=== PATIENT | female | born 1940 | race Caucasian/White ===

== ENCOUNTER 2016-07-06 05:35 | Inpatient (IN) | payer MEDICARE, OTHER ==
--- NOTE | 2016-06-28 18:48 | CONS ---
DATE OF ADMISSION: 07/06/2016 DATE OF CONSULTATION: 07/06/2016 INTERNAL MEDICINE CONSULTATION, PREOPERATIVE EVALUATION Dear Dr. Mckeon, Thank you for asking me to see this 75-year-old retired woman who has had a significant problem with pain and inability to walk or climb stairs because of degenerative arthritis in her right knee. Th e patient previously underwent a left knee replacement several years ago and has done well. She cur rently lives by herself. She is a but does have some local friends. FAMILY HISTORY: The patient was born in [place] and came here approximately 21 years ago. Both danilo nts are . There is 1 sister who lives in [place] as does 1 son with the family. She is divo rced. MEDICAL PROBLEMS: Include hypertension, hypothyroidism, and osteoporosis. PAST SURGICAL HISTORY: She had a bladder suspension by Dr. Mitchell, left TKR actually 8 years ago b hilda Menard. She has had bunion surgery. She saw retinal specialist, Dr. Mireles, for what sounds l pepe a retinal detachment following a fall, treated with a gas bubble with at least 60% improvement. CURRENT MEDICATIONS: 1. Atenolol 25 mg b.i.d. 2. She takes Benicar. She is not clear about the dose. 3. She has Norvasc tablets which she is to take if her pressure is elevated. 4. She takes clonazepam. 5. Ambien for sleep. 6. She takes Crestor 5 mg daily. 7. She takes Synthroid, dose unknown. 8. Potassium. 9. She takes Alendronate 70 mg once weekly. 10. She has Motrin but has not been using it preoperatively. SOCIAL HISTORY: The patient is a nonsmoker and does not drink. REVIEW OF SYSTEMS: Not complaining of headaches, acceptable vision. She is driving. Cardiopulmona ry: Not short of breath, no cough, no exertional chest pain. Gastrointestinal: She did have a col onoscopy and has had several, every 5 or so years, which have been normal. Bladder symptoms are res olved. PHYSICAL EXAMINATION: GENERAL: Reveals a pleasant, somewhat overweight woman in no acute distress. VITAL SIGNS: Blood pressure is 140/78, on repeat was 120/78, pulse 72. She is afebrile. She weigh s 191 pounds. HEENT: Pupils round, reactive. Extraocular muscle movements are intact. 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 CHEST: Sounds clear. HEART: Tones regular, no murmurs. ABDOMEN: Soft, without palpable mass or tenderness. EXTREMITIES: The right knee is sore and is somewhat tender to range of motion with palpable effusio n. There is no edema. There is no clubbing or cyanosis. She does have some distal osteoarthritic changes in the IP joints of the hands. Peripheral pulses are good. INITIAL IMPRESSION: 1. Preoperative status, right total knee replacement. 2. History of hypertension, well controlled. 3. Hyperlipidemia. 4. Hypothyroidism. 5. History of what sounds to be a retinal detachment on the right which has improved. DISCUSSION: Electrocardiogram and chest x-ray are both within normal limits. There is a mild first -degree AV block noted on EKG which is showing consequential and may relate to her beta blockade. D iscussion at this point her medical status would appear to be acceptable for planned surgery. Labor atory tests are pending and will be forwarded. Dictated By: LAWRENCE MORGAN MD SR/NTS Conf#: [id number] DID#: [id number]
[~2016-07-06] VITALS: Ht 160 cm; Wt 83.8 kg
[2016-07-06] VITALS (22 sets, daily range): BP systolic 95–147; BP diastolic 46–78; PULSE 60–88; RESP 11–23; Ht 160 cm; Wt 83.8 kg
[2016-07-06] MEDS ORDERED: LACTATED RINGER'S 1,000 ML IV* SCH (06:05)
[2016-07-06] MEDS ORDERED: VANCOMYCIN 1 GM (PMX) 250 ML IVPB ONE (06:06)
[2016-07-06] MEDS: SOD CHLORIDE 0.9% IRR SCH ×4 (06:07→08:13)
[2016-07-06] MEDS ORDERED: TRANEXAMIC ACID IVPB ONE (06:07)
[2016-07-06] MEDS ORDERED: SOD CHLORIDE 0.9% IVPB ONE (06:07)
[2016-07-06] MEDS: TRANEXAMIC ACID IRR SCH ×4 (06:07→08:13)
[2016-07-06] MEDS ORDERED: CELECOXIB 200 MG CAP PO ONE (06:08)
[2016-07-06] MEDS ORDERED: LANSOPRAZOLE 30 MG CAP PO ONE (06:08)
[2016-07-06] MEDS ORDERED: ACETAMINOPHEN 1000MG/100ML IV 100 ML IVPB ONE (06:08)
[2016-07-06] MEDS ORDERED: oxyCODONE (CR) 10 MG TAB [oxyCONTIN] PO ONE (06:08)
[2016-07-06] MEDS ORDERED: ONDANSETRON 4 MG INJ IV ONE (06:08)
[2016-07-06] MEDS ORDERED: DEXAMETHASONE 4 MG/ML 1 ML INJ IV ONE (06:09)
[2016-07-06] MEDS: KNEE PAIN COCKTAIL VANCO INJ SCH ×12 (06:30→08:13)
[2016-07-06] MEDS ORDERED: BUPIVACAINE 0.5%/EPI (SDV) 30 ML INJ ONE (06:39)
[2016-07-06] MEDS ORDERED: ROPIVACAINE 0.2% 100ML BAG ONE (06:46)
[2016-07-06] MEDS ORDERED: VANCOMYCIN 1 GM INJ ONE (06:46)
[2016-07-06] MEDS ORDERED: TOBRAMYCIN 1.2 GM POWDER ONE (06:46)
[2016-07-06] MEDS ORDERED: METHYLENE BLUE 10 MG/ML VIAL ONE (06:46)
[2016-07-06] MEDS ORDERED: BUPIVACAINE 0.25%/EPI (SDV) 30 ML INJ ONE (06:46)
[2016-07-06] MEDS ORDERED: POLYMYXIN B 500000 UNIT INJ ONE (06:46)
[2016-07-06] MEDS ORDERED: LIDOCAINE 2% (SDV) 5 ML INJ ONE (07:11)
[2016-07-06] MEDS ORDERED: PROPOFOL 20 ML ONE (07:11)
[2016-07-06] MEDS ORDERED: POTA10TA18 PO (07:17)
[2016-07-06] MEDS ORDERED: CLON1TAB3 PO (07:17)
[2016-07-06] MEDS ORDERED: DEXL60CA2 PO (07:17)
[2016-07-06] MEDS ORDERED: METO50TA16 PO (07:17)
[2016-07-06] MEDS ORDERED: ATEN-51 PO (07:17)
[2016-07-06] MEDS ORDERED: CRES10 PO (07:17)
[2016-07-06] MEDS ORDERED: GABA100C14 PO (07:17)
[2016-07-06] MEDS ORDERED: LEVO50TA83 PO (07:17)
[2016-07-06] MEDS ORDERED: LINA290C PO (07:17)
[2016-07-06] MEDS ORDERED: BENHCT2012 PO (07:17)
[2016-07-06] MEDS ORDERED: hydrALAzine 20 MG INJ IV PRN (08:00)
[2016-07-06] MEDS ORDERED: EPHEDrine SULFATE 50 MG/5 ML SYG IV PRN (08:00)
[2016-07-06] MEDS ORDERED: DIPHENHYDRAMINE 50 MG INJ IV PRN (08:00)
[2016-07-06] MEDS ORDERED: METOCLOPRAMIDE 10 MG INJ IV PRN (08:00)
[2016-07-06] MEDS ORDERED: MIDAZOLAM 1 MG/ML 2 ML INJ IV PRN (08:00)
[2016-07-06] MEDS ORDERED: MEPERIDINE 25 MG INJ IV PRN (08:00)
[2016-07-06] MEDS ORDERED: morphine (1 MG/ML) 10ML SYRINGE IV PRN ×2 (08:00)
[2016-07-06] MEDS ORDERED: LABETALOL HCL 20MG INJ IV PRN (08:00)
[2016-07-06] MEDS ORDERED: ONDANSETRON 4 MG INJ IV PRN (08:00)
[2016-07-06] MEDS ORDERED: HYDROmorphONE (0.2 MG/ML) 10ML SYG IV PRN ×2 (08:00)
[2016-07-06] MEDS ORDERED: FENTAnyl 50 MCG/ML VIAL IV PRN ×2 (08:00)
[2016-07-06] MEDS ORDERED: BACITRACIN 50000 UNITS INJ IRR ONE (08:13)
[2016-07-06] MEDS ORDERED: DIPHENHYDRAMINE 50 MG INJ IM PRN (11:30)
[2016-07-06] MEDS ORDERED: COUMADIN NOTE XX SCH (11:30)
[2016-07-06] MEDS ORDERED: HYDROmorphONE 0.2 MG/ML PCA IV PRN (11:30)
[2016-07-06] MEDS ORDERED: DOCUSATE SODIUM 100 MG CAP PO ONE (11:30)
[2016-07-06] MEDS ORDERED: MAGNESIUM HYDROXIDE 30ML CUP PO PRN (11:30)
[2016-07-06] MEDS ORDERED: ASPIRIN (EC) 325 MG TAB PO ONE (11:30)
[2016-07-06] MEDS ORDERED: MEPERIDINE 10 MG/ML 30 ML PCA IV PRN (11:30)
[2016-07-06] MEDS ORDERED: BISACODYL 10 MG SUPP PR PRN (11:30)
[2016-07-06] MEDS ORDERED: SENNA/DOCUSATE NA (8.6MG/50MG) TAB PO PRN (11:30)
[2016-07-06] MEDS ORDERED: oxyCODONE 5 MG TAB PO PRN (11:30)
[2016-07-06] MEDS ORDERED: NA PHOSPHATE/BIPHOS 133 ML ENEMA PR PRN (11:30)
[2016-07-06] MEDS: ACETAMINOPHEN 1000MG/100ML IV 100 ML IVPB SCH ×2 (11:30→20:19)
[2016-07-06] MEDS ORDERED: NALOXONE (0.4 MG/ML) INJ IV PRN (11:30)
--- NOTE | 2016-07-06 11:39 | PN ---
Date/Time of Note Date/Time of Note DATE: 07/06/16 TIME: 11:32 Assessment/Plan VTE Prophylaxis VTE Prophylaxis Intervention: SCD's Lines/Catheters IV Catheter Type (from Nrsg): Saline Lock Central line still needed: No (asa) Urinary Cath still in place: Yes Reason Cath still needed: other (indicate) (postop) Subjective 24 Hr Interval Summary Free Text/Dictation jamari dfsis post tkr seen in recovery room.Sfdshe is alert and talkative, no real complaints at this point. hx of hypertension, hypothyroidism, hyperlipidemia, djd of the knees. on exam, lungs clear, heart rate ok, bp 121/67, rt knee wrapped Exam/Review of Systems Vital Signs Vitals Vital Signs Date Time Temp Pulse Resp B/P Pulse Ox O2 Delivery O2 Flow Rate FiO2 07/06/16 11:20 68 19 119/63 94 Nasal Cannula 07/06/16 11:15 98.0 Medications Medications Current Medications Lactated Ringer's (Lr) 1,000 ml @ 125 mls/hr Q8H IV* Last administered on at 06:23; Admin Dose 125 MLS/HR; Start 07/06/16 at 06:05; Stop 07/06/16 at 14:04 LAWRENCE MORGAN MD Jul 06, 2016 11:39
--- NOTE | 2016-07-06 11:54 | RADRPT ---
PROCEDURE: Right knee radiographs. CLINICAL INDICATION: Right knee pain. Intraoperative. TECHNIQUE: 3 views. Portable intraoperative. Frontal, lateral, and oblique. COMPARISON: 06/20/1960. FINDINGS: There are components of a total right knee arthroplasty. Anterior skin madonna and surgical drains are noted. There is gas in the soft tissues from the recent surgery. There is no lytic or blastic lesion. IMPRESSION: 1. Satisfactory intraoperative images of the right knee. RPTAT: QQ .Guanakito Church MD, Date Time Electronically viewed and signed by .Guanakito Church MD, on 07/06/2016 11:53 .R/
--- NOTE | 2016-07-06 11:54 | RADRPT ---
PROCEDURE: Intraoperative imaging of the right knee with fluoroscopy. CLINICAL INDICATION: Right knee pain. Intraoperative. TECHNIQUE: 6 images of the right knee were obtained in the operating room with an image intensifie r. No radiologist was in attendance. 20.3 seconds of fluoroscopy time was used. COMPARISON: No prior study is available for comparison. FINDINGS: Images demonstrate placement of a right knee total arthroplasty. IMPRESSION: 1. Intraoperative imaging of the right knee. RPTAT: QQ .Guanakito Church MD, MD Date Time Electronically viewed and signed by .Guanakito Church MD, MD on 07/06/2016 11:54 .R/
[2016-07-06] MEDS: CEFAZOLIN 1 GM/50 ML (PMX) 50 ML IVPB SCH ×2 (12:08→20:19)
[2016-07-06] MEDS: ONDANSETRON 4 MG INJ IV SCH ×3 (12:09→23:30)
--- NOTE | 2016-07-06 12:57 | OPR ---
DATE OF OPERATION: 07/06/2016 TOTAL KNEE REPLACEMENT TEMPLATE #1 SURGEON: Herbert. Linda MD CRYOGENIC TRANSPORT DRIVER: ANESTHESIOLOGIST: Dr. Giron PREOPERATIVE DIAGNOSIS: Exceedingly severe degenerative osteoarthritis of the right knee. POSTOPERATIVE DIAGNOSIS: Exceedingly severe degenerative osteoarthritis of the right knee. OPERATION PERFORMED: Total knee replacement (arthroplasty of the knee, condylar plateau medial and lateral compartments with patella resurfacing, CPT 43060). FINDINGS AT SURGERY: JUSTIFICATION FOR SURGERY: The knee was found to have end-stage osteoarthritis. 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 An extensive course of conservative care has been tried prior to embarking on the knee replacement operation. There can be no reasonable expectation that any further conservative treatment will make any improvement to this patient's pain level and lifestyle. The risks and complications of the janel courtney were discussed with the patient at the preoperative visit as well as the risks and possible com plications of blood transfusion using hospital blood. The patient is agreeable to using hospital bl ood if needed. DESCRIPTION OF PROCEDURE: The patient was given intravenous antibiotics 1 hour prior to surgery. A n epidural anesthetic was initiated in the ICU holding area. The patient was taken to the operating room and given a light general anesthetic. The leg, foot, and ankle were prepared and draped in th e usual sterile fashion. The center of the ankle was marked at the midpoint between the 2 malleoli with a sterile marking pen. A tourniquet around the thigh was inflated to 250 mmHg after the leg sanders d been exsanguinated using an Esmarch bandage. The tourniquet was inflated at the initiation of pro cedure for a short period and was then again reinflated at the time of cementing the components part s. The total tourniquet time was ____ minutes. A longitudinal incision was made over the anterior aspect of the knee. The incision extended from t he tibial tubercle to a point just above the patella. The medial capsule was exposed by sharp and b lizbet dissection, and was incised 1/4 inch medial to the patella. A marking stitch was set on each s sam of the incision at the midpoint of the capsule so as to enable accurate reapproximation at the e nd of the operation. A vastus split was made in the vastus medialis extending from the superior mary jo e of the patella for approximately 5 cm between the line with the muscle fibers. The ends of the mu scle split at the patella were marked with a marking stitch on each side for later accurate reapprox imation. The patella was reflected laterally and osteophytes around the rim of the patella were rem jono. Osteophytes along the lateral femoral condyle were removed so as to facilitate lateral reflec tion of the patella. Posteromedial osteophytes were removed on the lateral side as well, so as to f ree up the lateral collateral ligament. Medial femoral osteophytes and posteromedial femoral osteop hytes were also removed at this time. This allowed for the knee to be brought into a more normal al ignment. A segment of bone was cut from the articular surface of the patella using a caliper to det ermine the exact thickness to be removed. The remaining thickness of the patella was 15 mm. The kn ee was flexed, and the patella was displaced laterally without eversion. Osteophytes in the femoral notch were removed. The remnants of the medial and lateral menisci were excised and the cruciate l igaments were excised. The medial collateral ligament was elevated as an osteo-periosteal flap from the proximal tibia. The distal end of the medial collateral ligament remained attached to the tibi a throughout the operation. The tibia was retracted forward with Hohmann retractor, inserted milk handler ior to the midpoint of the proximal tibia. The tibial jig was set in place in such a way as to alig n longitudinally with the anterior tibial spine, with the junction of the middle and medial 2/3 of t he patella tendon, and with the posterior intercondylar eminence of the tibia. An AP and lateral x- ray was obtained with the alignment jig in place. This showed that the alignment was satisfactory a fter some slight adjustments were made. The posterior slope of the tibia was set at 7.5 degrees. T he tibial cutting block was attached to the proximal tibia with 2 Steinmann pins. An external align ment corey was placed on the cutting block to confirm the alignment of the cutting block. An Elias Wi ng feeler gauge was now placed on the superior aspect of the cutting block to further confirm the po sterior slope of the tibia and the depth of the cut to be made. An oscillating saw was used to kanika ve an appropriate amount of bone from the proximal tibia with the healthy side being used to measure the cutting depth. The lateral femoral condyle of the distal femur was measured to determine the a ppropriate size for the femoral component. The anterior condyle of the femur was partially removed with a rongeur. A medium-sized cutting block was attached to the distal femur with 2 Steinmann pins through the pin holes in the block. The external alignment jig of this cutting block was lined up with the anterior surface of the femur and a central intercondylar hole for the intramedullary corey w as drilled through the hole in the alignment block. The block was removed. A long [place] nozzle was used to flush fat from the intramedullary canal. The appropriately sized cutting block was now attached to the femur by means of an intramedullary corey. The linking guide was inserted into the sl ot in the base of the femoral cutting block with the knee set at 90 degrees of flexion and with the linking guide set flush with the proximal tibial cut in order to set the appropriate rotational alig nment on the femoral cutting block. Ligament balance was checked at this point and was found to be very satisfactory. Once the rotational alignment had been determined, and the ligaments found to be balanced, the femoral cutting block was secured to the distal femur with 2 Steinmann pins. The ant erior and posterior cuts of the distal femur were made off the femoral cutting block. The cutting b lock was removed and a spacer block was used to measure the flexion gap which was found to be 12.5 m m. The same spacer block size without the femoral element was used with the leg in extension to determi ne the amount of distal femur to be removed in the transverse plane. A 5-degree distal cutting bloc k was now set on the femoral intramedullary corey, and the corey was inserted into the intramedullary ca nal. The appropriate amount of bone to be removed was determined. The femoral cutting block was pi nned to the anterior surface of the femur with 2 Steinmann pins. The appropriate amount of bone was resected off the distal femur to give an extension gap equal to the thickness of the flexion gap. The cut needed to be repeated after initial cut in order to produce an extension gap the same size a s the flexion gap. By using the appropriate cutting blocks, the rest of the femoral cuts were made. The femoral trial component was installed and was found to fit perfectly. The femoral trial component was removed. T he proximal tibia was sized, and the appropriate tibial tray selected. The central fixation hole in the tibia was made using the tibial tray template and the appropriate instruments. The femoral and tibial trials and the trial tibial insert were installed, and the patella was prepared to accept th e 35 mm patella dome component. The trial components were all removed. The tourniquet was inflated . Soft tissues around the knee, especially the posterior capsule, were injected with a mixture of N aropin, Toradol, morphine, and clonidine. The cut surfaces of the bones were cleaned with pulsatile Water Jet lavage and thoroughly dried. Sclerotic bone surfaces were drilled with a 1/8-inch drill. The tibial trial component was installed with methyl methacrylate cement followed by the femoral c omponent and finally the patellar component. Cement was used on all 3 components. The cement was f bryan packed into the cut surfaces of the bone and pressurized with a rubber dam in order to get goo d interdigitation of the cement into the bone. A lateral x-ray of the knee was obtained while the c ement was hardening with the anticipated appropriate spacer trial in place. Once the cement was tej d, all extraneous cement was removed. The cut edges of the medial capsule were held together at the midpoint with a towel clip, and the knee was put through a full range of motion. The patella was f ound to track satisfactorily. A lateral release was not required. At this point, the patella was f ound to track very well in the patellar groove of the femoral component. The knee was frequently irrigated with normal saline containing antibiotics with pulsatile lavage th roughout the entire operation as a prophylactic measure against infection. Once the cement was hard , the tourniquet was released. Bleeding points were cauterized. The total tourniquet time was ____ . The patient's vital signs remained stable throughout the operation. The permanent rotating bearing was installed. Superficial and deep Hemovac drains were set in place . The wound was closed using interrupted Vicryl on the capsule with FiberWire used at strategic poi nts such as the attachment of the distal ends of the vastus medialis at the split, and the tibial te ndon was also attached to the osteo-periosteal flap with FiberWire. The rest of the medial capsule was closed with interrupted Vicryl. A subcuticular stitch was inserted and madonna were used on the skin. The usual sterile dressings were applied. A Lui-Aden compression dressing was applied a fter a sterile cooling pad had been set in place against the deep tissues by sterile cast padding. The patient's condition at the end of the procedure was satisfactory. Vital signs remained stable t hroughout the operation. The patient returned to the recovery room in stable condition. X-rays wer e obtained in the recovery room. Calf pumps were applied to both legs in the operating room. There were no problems or complications as far as we know. The sponge and instrument counts were correct . COMPONENT INFORMATION: KNEE IMPLANT TYPE: LCS. FEMORAL COMPONENT SIZE: Standard. TIBIAL COMPONENT SIZE: #3. PATELLAR COMPONENT SIZE: 35 mm patella dome. TIBIAL INSERT: 12.5 mm rotating posterior stabilized deep dish bearing. 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 TOTAL TOURNIQUET TIME: ____ TOTAL BLOOD LOSS: Approximately 200 mL. Dictated By: LUIS BEARDEN/HANH Conf#: [id number] DID#: [id number]
[2016-07-06] MEDS: DEXTROSE 5%-LR 1,000 ML IV SCH ×2 (14:42→23:49)
[2016-07-06] MEDS: clonAZEPAM 0.5 MG TAB PO SCH (20:20)
[2016-07-06] MEDS: CELECOXIB 200 MG CAP PO SCH (20:21)
[2016-07-06] MEDS: GABAPENTIN 100 MG CAP PO SCH (21:00)
[2016-07-06] MEDS: ZOLPIDEM 5 MG TAB PO PRN (21:12)
[2016-07-07 00:39] VITALS: BP 114/54; PULSE 78; RESP 18
[2016-07-07] MEDS: ACETAMINOPHEN 1000MG/100ML IV 100 ML IVPB SCH ×3 (04:23→20:49)
[2016-07-07] MEDS: CEFAZOLIN 1 GM/50 ML (PMX) 50 ML IVPB SCH (04:23)
[2016-07-07] MEDS: DEXTROSE 5%-LR 1,000 ML IV SCH ×2 (04:24→21:39)
[2016-07-07] MEDS: ONDANSETRON 4 MG INJ IV SCH (05:20)
[2016-07-07] MEDS ORDERED: BUPIVACAINE 0.25%/EPI (SDV) 30 ML INJ INJ PRN (06:00)
[2016-07-07] MEDS ORDERED: KETOROLAC 30 MG INJ INJ PRN (06:00)
[2016-07-07 06:02] LABS: BASOPHILS % 0.2 % (0.0-2.0); HEMATOCRIT 29.9 % (37.0-47.0); HEMOGLOBIN 10.3 g/dl (12.0-16.0); LYMPHOCYTES # 1.2 10^3/ul (0.8-2.9); MEAN CORPUSCULAR HEMOGLOBIN 31.9 pg (29.0-33.0); MEAN CORPUSCULAR HGB CONC 34.3 g/dl (32.0-37.0); MEAN CORPUSCULAR VOLUME 93.1 fl (82.0-101.0); MEAN PLATELET VOLUME 9.2 fl (7.4-10.4); MONOCYTE # 0.8 10^3/ul (0.3-0.9); NEUTROPHIL # 8.1 10^3/ul (1.6-7.5); NEUTROPHILS % 79.8 % (39.0-77.0); PLATELET COUNT 249 10^3/UL (140-440); RED BLOOD COUNT 3.21 10^6/ul (4.20-5.40); RED CELL DISTRIBUTION WIDTH 13.3 % (11.5-14.5); UNCORRECTED WBC 10.2 10^3/ul (4.8-10.8); WHITE BLOOD COUNT 10.2 10^3/ul (4.8-10.8)
[2016-07-07 06:22] LABS: CONDITION 1
[2016-07-07] MEDS: LEVOTHYROXINE 50 MCG TAB PO SCH (06:28)
[2016-07-07] MEDS: DEXAMETHASONE 4 MG/ML 1 ML INJ IV SCH (06:28)
[2016-07-07 07:01] VITALS: BP 145/78; PULSE 77; RESP 18
[2016-07-07 07:46] LABS: ADD UMIC YES; URINE BILIRUBIN (Dip) NEGATIVE (NEGATIVE); URINE BLOOD (Dip) TRACE (NEGATIVE); URINE COLOR LT. YELLOW (YELLOW); URINE KETONES (Dip) NEGATIVE (NEGATIVE); URINE LEUKOCYTE ESTERASE (Dip) NEGATIVE (NEGATIVE); URINE NITRITE (Dip) NEGATIVE (NEGATIVE); URINE TOTAL PROTEIN (Dip) NEGATIVE (NEGATIVE); URINE UROBILINOGEN (Dip) 0.2 E.U./dL (0.1-1.0)
[2016-07-07 08:00] VITALS: BP 136/70; PULSE 73; RESP 17
[2016-07-07 08:24] LABS: BACTERIA,URINE RARE
[2016-07-07] MEDS: HYDROCHLOROTHIAZIDE 12.5 MG CAP PO SCH (08:57)
[2016-07-07] MEDS: CELECOXIB 200 MG CAP PO SCH ×3 (08:57→20:50)
[2016-07-07] MEDS: ASPIRIN (EC) 325 MG TAB PO SCH ×2 (08:58→21:00)
[2016-07-07] MEDS: FERROUS FUMARATE (SR) TAB PO SCH ×2 (08:58→20:49)
[2016-07-07] MEDS: GABAPENTIN 100 MG CAP PO SCH (08:58)
[2016-07-07] MEDS: LOSARTAN 50 MG TAB PO SCH (08:58)
[2016-07-07] MEDS: ATENOLOL 25 MG TAB PO SCH (08:59)
[2016-07-07] MEDS: DOCUSATE SODIUM 100 MG CAP PO SCH ×2 (08:59→21:00)
[2016-07-07] MEDS ORDERED: NON-FORMULARY/PATIENT OWN MED (Dexlansoprazole (Dexilant) 60 MG) PO SCH (09:00)
[2016-07-07] MEDS: clonAZEPAM 0.5 MG TAB PO SCH ×2 (09:00→20:50)
[2016-07-07] MEDS: POTASSIUM CITRATE (SR) 5 MEQ TAB PO SCH (09:00)
[2016-07-07] MEDS: METOPROLOL (XL) 25 MG TAB PO SCH (09:00)
--- NOTE | 2016-07-07 15:30 | PN ---
Date/Time of Note Date/Time of Note DATE: 07/07/16 TIME: 15:27 Assessment/Plan VTE Prophylaxis VTE Prophylaxis Intervention: SCD's (ambulating w p.t., on asa) Lines/Catheters IV Catheter Type (from Nrsg): Peripheral IV Urinary Cath still in place: Yes Subjective 24 Hr Interval Summary Free Text/Dictation one day post op right tkr, doing well, minimal discomfort dressings changed, has been up with p.t. vitals are ok, meds continued from home alert lungs clear, heart rate is ok, abd soft rt knee fair flexion for this early post op stage, no sig edema Exam/Review of Systems Vital Signs Vitals Vital Signs Date Time Temp Pulse Resp B/P Pulse Ox O2 Delivery O2 Flow Rate FiO2 07/07/16 08:00 98.3 73 17 136/70 96 Room Air 07/06/16 21:15 2.0 Intake and Output 07/06/16 07/06/16 07/07/16 15:00 23:00 07:00 Intake Total 3750 ml 760 ml 1050 ml Output Total 750 ml 1780 ml 2500 ml Balance 3000 ml -1020 ml -1450 ml Results Result Diagram: 07/07/16 0440 Results 24 hrs Laboratory Tests Test 07/07/16 04:30 07/07/16 04:40 Urine Bacteria RARE Urine Bilirubin NEGATIVE Urine Clarity CLEAR Urine Color LT. YELLOW Urine Epithelial Cells RARE Urine Glucose 0.5% H Urine Hemoglobin TRACE Urine Ketones NEGATIVE Urine Leukocyte Esterase NEGATIVE Urine Microscopic RBC 2-5 Urine Microscopic WBC 0-2 Urine Nitrite NEGATIVE Urine Specific [place] <=1.005 L Urine Total Protein NEGATIVE Urine Urobilinogen 0.2 E.U./dL Urine pH 6.0 Basophils # 0.0 Basophils % 0.2 Eosinophils # 0.0 Eosinophils % 0.0 Hematocrit 29.9 L Hemoglobin 10.3 L Lymphocytes # 1.2 Lymphocytes % 12.0 L Mean Corpuscular Hemoglobin 31.9 Mean Corpuscular Hemoglobin Concent 34.3 Mean Corpuscular Volume 93.1 Mean Platelet Volume 9.2 Monocytes # 0.8 Monocytes % 8.0 Neutrophils # 8.1 H Neutrophils % 79.8 H Nucleated Red Blood Cells # 0.0 Nucleated Red Blood Cells % 0.0 Platelet Count 249 Red Blood Count 3.21 L Red Cell Distribution Width 13.3 White Blood Count 10.2 Medications Medications Current Medications Dextrose/Lactated Ringer's (D5-Lr) 1,000 ml @ 80 mls/hr [id number] IV Last administered on 07/07/16at 04:24; Admin Dose 80 MLS/HR; Start 07/06/16 at 11:19 Oxycodone HCl (Roxicodone) 20 mg Q3H PRN PO PAIN LEVEL 8-10; Start 07/06/16 at 11:30 Oxycodone HCl 10 mg 10 mg Q3H PRN PO PAIN LEVEL 4-7; Start 07/06/16 at 11:30 Acetaminophen (Ofirmev 1000mg/ 100ml Iv) 100 ml @ 400 mls/hr Q8H IVPB Last administered on 07/07/16at 12:07; Admin Dose 400 MLS/HR; Start 07/06/16 at 11: 30; Stop 07/08/16 at 03:44 Zolpidem Tartrate (Ambien) 5 mg HS PRN PO INSOMNIA Last administered on at 21:12; Admin Dose 5 MG; Start 07/06/16 at 11:30 Miscellaneous Information (Note) NOTE XX ; Start 07/06/16 at 11:30 Aspirin (Ecotrin) 325 mg BID PO Last administered on 07/07/16at 08:58; Admin Dose 325 MG; Start 07/07/16 at 09:00 Dexamethasone (Decadron) 4 mg DAILY@07 IV Last administered on 07/07/16at 06:28 ; Admin Dose 4 MG; Start 07/07/16 at 07:00; Stop 07/10/16 at 06:59 Pantoprazole (Protonix Tab) 40 mg DAILY@06 PO ; Start 07/08/16 at 06:00 Docusate Sodium/ Ferrous Fumarate (Grace-Sequels) 1 tab BID PO Last administered on 07/07/16at 08:58; Admin Dose 1 TAB; Start 07/07/16 at 09:00 Docusate Sodium (Colace) 200 mg BID PO Last administered on 07/07/16at 08:59; Admin Dose 200 MG; Start 07/07/16 at 09:00; Stop 07/10/16 at 08:59 Simethicone (Mylicon) 80 mg TID PRN PO DISTENSION/GAS/BLOATING Last administered on 07/07/16at 08:59; Admin Dose 80 MG; Start 07/06/16 at 11:30 Senna/Docusate Sodium (Senokot-S) 2 tab BID PRN PO CONSTIPATION Last administered on 07/07/16at 09:00; Admin Dose 2 TAB; Start 07/06/16 at 11:30 Magnesium Hydroxide (Milk Of Mag) 30 ml HS PRN PO CONSTIPATION; Start at 11:30 Bisacodyl (Dulcolax Supp) 10 mg DAILY PRN SD CONSTIPATION; Start 07/06/16 at 11:30 Sodium Biphosphate/ Sodium Phosphate (Fleet Enema) 133 ml DAILY PRN SD CONSTIPATION; Start 07/06/16 at 11:30 Diphenhydramine HCl (Benadryl) 25 mg Q4H PRN IM ITCHING OR RASH; Start at 11:30 Ketorolac Tromethamine (Toradol) 30 mg DAILY@06 PRN INJ ADMINSTER BY SURGEON ONLY; Start 07/07/16 at 06:00; Stop 07/11/16 at 05:59 Bupivacaine HCl/ Epinephrine Bitart (Marcaine 0.25%/ Epi (Sdv) 30 ml) 20 ml DAILY@06 PRN INJ ADMINSTER BY SURGEON ONLY; Start 07/07/16 at 06:00; Stop 07/11 at 05:59 Naloxone HCl (Narcan) 0.2 mg Q2M PRN IV DECREASED REPIRATORY RATE; Start at 11:30 Celecoxib (Celebrex) 200 mg BID PO Last administered on 07/06/16at 20:21; Admin Dose 200 MG; Start 07/06/16 at 21:00 Atenolol (Tenormin) 25 mg DAILY PO Last administered on 07/07/16at 08:59; Admin Dose 25 MG; Start 07/07/16 at 09:00 Clonazepam (Klonopin) 1 mg BID PO Last administered on 07/06/16at 20:20; Admin Dose 1 MG; Start 07/06/16 at 21:00 Potassium Citrate (Urocit-K) 10 meq DAILY PO Last administered on 07/07/16at 09 :00; Admin Dose 10 MEQ; Start 07/07/16 at 09:00 Losartan Potassium (Cozaar) 100 mg DAILY PO Last administered on 07/07/16at 08: 58; Admin Dose 100 MG; Start 07/07/16 at 09:00 Metoprolol Succinate (Toprol Xl) 25 mg DAILY PO Last administered on 09:00; Admin Dose 25 MG; Start 07/07/16 at 09:00 Hydrochlorothiazide (Hydrochlorothiazide) 12.5 mg DAILY PO Last administered on 07/07/16 08:57; Admin Dose 12.5 MG; Start 07/07/16 at 09:00 Gabapentin (Neurontin) 100 mg DAILY PO Last administered on 07/07/16 08:58; Admin Dose 100 MG; Start 07/06/16 at 21:00 Levothyroxine Sodium (Synthroid) 50 mcg DAILY@06 PO Last administered on 06:28; Admin Dose 50 MCG; Start 07/07/16 at 06:00 LAWRENCE MORGAN MD Jul 07, 2016 15:30
[2016-07-07] MEDS: oxyCODONE 5 MG TAB PO PRN (15:54)
[2016-07-07 21:15] VITALS: BP 150/70; PULSE 61; RESP 18
[2016-07-08] VITALS: BP 149/67; PULSE 62; RESP 18
[2016-07-08] MEDS: ACETAMINOPHEN 1000MG/100ML IV 100 ML IVPB SCH (03:58)
[2016-07-08 05:31] LABS: BASOPHILS % 0.2 % (0.0-2.0); EOSINOPHILS # 0.1 10^3/ul (0.0-0.5); EOSINOPHILS % 0.9 % (0.0-7.0); HEMATOCRIT 30.5 % (37.0-47.0); HEMOGLOBIN 10.3 g/dl (12.0-16.0); LYMPHOCYTES # 2.6 10^3/ul (0.8-2.9); LYMPHOCYTES % 27.5 % (15.0-51.0); MEAN CORPUSCULAR HEMOGLOBIN 31.6 pg (29.0-33.0); MEAN CORPUSCULAR HGB CONC 33.7 g/dl (32.0-37.0); MEAN CORPUSCULAR VOLUME 93.8 fl (82.0-101.0); MEAN PLATELET VOLUME 8.9 fl (7.4-10.4); MONOCYTES % 10.9 % (0.0-11.0); NEUTROPHIL # 5.7 10^3/ul (1.6-7.5); NEUTROPHILS % 60.5 % (39.0-77.0); PLATELET COUNT 251 10^3/UL (140-440); RED BLOOD COUNT 3.26 10^6/ul (4.20-5.40); RED CELL DISTRIBUTION WIDTH 13.3 % (11.5-14.5); UNCORRECTED WBC 9.5 10^3/ul (4.8-10.8); WHITE BLOOD COUNT 9.5 10^3/ul (4.8-10.8)
[2016-07-08 05:56] LABS: CONDITION 1
[2016-07-08] MEDS: DEXAMETHASONE 4 MG/ML 1 ML INJ IV SCH (06:28)
[2016-07-08] MEDS: LEVOTHYROXINE 50 MCG TAB PO SCH (06:28)
[2016-07-08] MEDS: PANTOPRAZOLE (EC) 40 MG TAB PO SCH (06:28)
[2016-07-08 08:00] VITALS: BP 115/53; PULSE 61; RESP 18
[2016-07-08] MEDS: POTASSIUM CITRATE (SR) 5 MEQ TAB PO SCH (08:41)
[2016-07-08] MEDS: FERROUS FUMARATE (SR) TAB PO SCH ×2 (08:41→20:33)
[2016-07-08] MEDS: oxyCODONE 5 MG TAB PO PRN (08:42)
[2016-07-08] MEDS: ASPIRIN (EC) 325 MG TAB PO SCH ×2 (08:42→21:00)
[2016-07-08] MEDS: CELECOXIB 200 MG CAP PO SCH ×2 (08:42→20:33)
[2016-07-08] MEDS: GABAPENTIN 100 MG CAP PO SCH (08:43)
[2016-07-08] MEDS: HYDROCHLOROTHIAZIDE 12.5 MG CAP PO SCH (08:43)
[2016-07-08] MEDS: METOPROLOL (XL) 25 MG TAB PO SCH (08:43)
[2016-07-08] MEDS: clonAZEPAM 0.5 MG TAB PO SCH ×2 (08:44→21:00)
[2016-07-08] MEDS: LOSARTAN 50 MG TAB PO SCH (08:44)
[2016-07-08] MEDS: ATENOLOL 25 MG TAB PO SCH (08:45)
[2016-07-08] MEDS: DOCUSATE SODIUM 100 MG CAP PO SCH ×2 (08:46→21:00)
--- NOTE | 2016-07-08 11:32 | PN ---
Date/Time of Note Date/Time of Note DATE: 07/08/16 TIME: 11:31 Assessment/Plan Lines/Catheters IV Catheter Type (from Nrsg): Saline Lock Carr in Place (from Nrsg): Yes Assessment/Plan Assessment/Plan POD # 2. Stable. -OOB with PT -Pain cocktail administered -Pain meds -E.C. ASA plus bilateral LE SCDs -Probable d/c to home tomorrow Subjective 24 Hr Interval Summary Comfortable. Minimal pain. Walking well with PT. Exam/Review of Systems Vital Signs Vitals Vital Signs Date Time Temp Pulse Resp B/P Pulse Ox O2 Delivery O2 Flow Rate FiO2 07/08/16 00:00 97.6 62 18 149/67 95 Room Air 07/06/16 21:15 2.0 Intake and Output 07/07/16 07/07/16 07/08/16 15:00 23:00 07:00 Intake Total 100 ml 930 ml 1100 ml Output Total 80 ml 2120 ml 950 ml Balance 20 ml -1190 ml 150 ml Exam Free Text/Dictation Dressing dry Incision clean, dry, and intact without redness or drainage 5/5 Tibialis Anterior, EHL, Gastroc Soleus, Peroneals Normal sensation Palpable DP/PT, CR < 2 Sec No distal edema Results Result Diagram: 07/08/16 0432 ALEX STEPHENS MD Jul 08, 2016 11:32
[2016-07-08] MEDS: DEXTROSE 5%-LR 1,000 ML IV SCH (12:06)
[2016-07-08 12:11] VITALS: BP 144/61; PULSE 66; RESP 16
[2016-07-08] MEDS: ZOLPIDEM 5 MG TAB PO PRN (20:33)
[2016-07-08 21:05] VITALS: BP 121/58; PULSE 63; RESP 18
[2016-07-09] MEDS: DEXTROSE 5%-LR 1,000 ML IV SCH (01:49)
[2016-07-09] MEDS ORDERED: LOPERAMIDE 2 MG CAP PO PRN (05:30)
[2016-07-09 05:41] LABS: BASOPHILS % 0.3 % (0.0-2.0); EOSINOPHILS # 0.1 10^3/ul (0.0-0.5); EOSINOPHILS % 1.1 % (0.0-7.0); HEMATOCRIT 32.3 % (37.0-47.0); LYMPHOCYTES # 3.3 10^3/ul (0.8-2.9); LYMPHOCYTES % 32.8 % (15.0-51.0); MEAN CORPUSCULAR HEMOGLOBIN 31.6 pg (29.0-33.0); MEAN CORPUSCULAR HGB CONC 34.2 g/dl (32.0-37.0); MEAN CORPUSCULAR VOLUME 92.6 fl (82.0-101.0); MEAN PLATELET VOLUME 9.3 fl (7.4-10.4); MONOCYTE # 0.7 10^3/ul (0.3-0.9); MONOCYTES % 7.2 % (0.0-11.0); NEUTROPHIL # 5.9 10^3/ul (1.6-7.5); NEUTROPHILS % 58.6 % (39.0-77.0); PLATELET COUNT 300 10^3/UL (140-440); RED BLOOD COUNT 3.49 10^6/ul (4.20-5.40); RED CELL DISTRIBUTION WIDTH 13.5 % (11.5-14.5)
[2016-07-09] MEDS: LEVOTHYROXINE 50 MCG TAB PO SCH (06:16)
[2016-07-09] MEDS: DEXAMETHASONE 4 MG/ML 1 ML INJ IV SCH (06:16)
[2016-07-09] MEDS: PANTOPRAZOLE (EC) 40 MG TAB PO SCH (06:16)
[2016-07-09 06:42] LABS: CONDITION 1
[2016-07-09 08:00] VITALS: BP 140/71; RESP 20
--- NOTE | 2016-07-09 08:36 | PDOCDIS ---
Discharge Instructions DIAGNOSIS Discharge Diagnosis: Status post right total knee arthroplasty CONDITION Patient Condition: Fair HOME CARE INSTRUCTIONS: Diet Instructions: RegularSpecial Diet: REGULAR ACTIVITY: Activity Restrictions: Slowly Increase Activity Rest between Activity Avoid heavy lifting Do not Drive Do not operate Machinery Do not operate Power Tool Avoid Heavy Housework Bathing Restrictions: ShowerActivity Restrictions Comment: Jac (for equipment)- [phone] FOLLOW UP/APPOINTMENTS Appointments Dr. Mckeon in 1 week REFERRALS Agency Name and Phone Number: [facility] [phone] CEDRIC CAGLE MD Jul 09, 2016 08:35
[2016-07-09] MEDS ORDERED: FERR1TAB14 PO (08:38)
[2016-07-09] MEDS ORDERED: CELE-54 PO (08:38)
[2016-07-09] MEDS ORDERED: ASPI325T32 PO (08:38)
--- NOTE | 2016-07-09 08:42 | DS ---
Date/Time of Note Date/Time of Note DATE: 07/09/16 TIME: 08:39 Discharge Summary Admission/Discharge Info Admit Date/Time Jul 06, 2016 at 05:35 Discharge Date/Time 07/09/2016 Final Diagnosis Osteoarthritis of right knee status post TKR; hypertension; hypothyroidism; hyperlipidemia; Patient Condition: Fair Consults Internal medicine; orthopedic surgery Procedures OPERATION PERFORMED: Total knee replacement (arthroplasty of the knee, condylar plateau medial and lateral compartments with patella resurfacing, CPT 85103). Hx of Present Illness Dear Dr. Mckeon, Thank you for asking me to see this 75-year-old retired woman who has had a significant problem with pain and inability to walk or climb stairs because of degenerative arthritis in her right knee. The patient previously underwent a left knee replacement several years ago and has done well. She currently lives by herself. She is a but does have some local friends. FAMILY HISTORY: The patient was born in [place] and came here approximately 21 years ago. Both parents are . There is 1 sister who lives in [place] as does 1 son with the family. She is . MEDICAL PROBLEMS: Include hypertension, hypothyroidism, and osteoporosis. PAST SURGICAL HISTORY: She had a bladder suspension by Dr. Mitchell, left TKR actually [address] Menard. She has had bunion surgery. She saw retinal specialist, Dr. Mireles, for what sounds like a retinal detachment following a fall, treated with a gas bubble with at least 60% improvement. Hospital Course 75-year-old woman who underwent successful joint replacement surgery on the . Postoperatively she had no complications. She did not have any cardiac respiratory neurologic complications. She did have one episode of loose bowel movements but has otherwise has done well. At this time she is now stable for discharge with outpatient follow-up. Home Meds Active Scripts Ferrous Fumarate/Ascorbic Acid (Grace-Sequels 65-25 mg Caplet) 1 Each Tablet.er , 1 TAB PO BID for 30 Days, TAB Prov:CEDRIC CAGLE MD 07/09/16 Celecoxib (Celecoxib) 200 Mg Capsule, 200 MG PO BID for 14 Days, CAP Prov:CEDRIC CAGLE MD 07/09/16 Aspirin (Aspir-Melvina) 325 Mg Tablet.dr, 325 MG PO BID for 14 Days Prov:CEDRIC CAGLE MD 07/09/16 Reported Medications Dexlansoprazole (Dexilant) 60 Mg Cap., 60 MG PO DAILY, #30 CAP 07/06/16 Olmesartan-Hydrochlorothiazide (Benicar HCT) 20-12.5 Mg Tablet, 1 TAB PO DAILY, #30 TAB 07/06/16 Linaclotide (LINZESS) 290 Mcg Capsule, 290 MCG PO DAILY, #30 CAP 07/06/16 Atenolol* (Atenolol*) 25 Mg Tablet, 25 MG PO DAILY, #30 TAB 07/06/16 Metoprolol Succinate* (Toprol XL*) 50 Mg Tab.er.24h, 50 MG PO DAILY, #30 TAB 07/06/16 Clonazepam* (Clonazepam*) 1 Mg Tablet, 1 MG PO BID, TAB 07/06/16 Potassium Citrate* (Potassium Citrate* ER) 10 Meq Tablet.sa, MEQ PO DAILY, TAB.SA 07/06/16 Rosuvastatin Calcium* (Crestor*) 10 Mg Tablet, 10 MG PO DAILY, #30 TAB 07/06/16 Gabapentin* (Gabapentin*) 100 Mg Capsule, 100 MG PO DAILY, #90 CAP 07/06/16 Levothyroxine Sodium* (Synthroid*) 50 Mcg Tablet, 50 MCG PO BEFORE BREAKFAST, # 30 TAB 07/06/16 Pending Labs Laboratory Tests Test 07/09/16 04:35 Basophils # 0.010^3/ul (0.0-0.1) Basophils % 0.3% (0.0-2.0) Eosinophils # 0.110^3/ul (0.0-0.5) Eosinophils % 1.1% (0.0-7.0) Hematocrit 32.3% (37.0-47.0) Hemoglobin 11.0g/dl (12.0-16.0) Lymphocytes # 3.310^3/ul (0.8-2.9) Lymphocytes % 32.8% (15.0-51.0) Mean Corpuscular Hemoglobin 31.6pg (29.0-33.0) Mean Corpuscular Hemoglobin Concent 34.2g/dl (32.0-37.0) Mean Corpuscular Volume 92.6fl (82.0-101.0) Mean Platelet Volume 9.3fl (7.4-10.4) Monocytes # 0.710^3/ul (0.3-0.9) Monocytes % 7.2% (0.0-11.0) Neutrophils # 5.910^3/ul (1.6-7.5) Neutrophils % 58.6% (39.0-77.0) Nucleated Red Blood Cells # 0.010^3/ul (0.0-0.0) Nucleated Red Blood Cells % 0.0/100WBC (0.0-0.0) Platelet Count 26860^3/UL (140-440) Red Blood Count 3.4910^6/ul (4.20-5.40) Red Cell Distribution Width 13.5% (11.5-14.5) White Blood Count 10.010^3/ul (4.8-10.8) CEDRIC CAGLE MD Jul 09, 2016 08:42
[2016-07-09] MEDS: METOPROLOL (XL) 25 MG TAB PO SCH (09:00)
[2016-07-09] MEDS: clonAZEPAM 0.5 MG TAB PO SCH (09:00)
[2016-07-09] MEDS: ASPIRIN (EC) 325 MG TAB PO SCH (09:00)
[2016-07-09] MEDS: ATENOLOL 25 MG TAB PO SCH (09:00)
[2016-07-09] MEDS: POTASSIUM CITRATE (SR) 5 MEQ TAB PO SCH (09:00)
[2016-07-09] MEDS: DOCUSATE SODIUM 100 MG CAP PO SCH (09:00)
[2016-07-09] MEDS: FERROUS FUMARATE (SR) TAB PO SCH (09:00)
[2016-07-09] MEDS: HYDROCHLOROTHIAZIDE 12.5 MG CAP PO SCH (09:00)
[2016-07-09] MEDS: GABAPENTIN 100 MG CAP PO SCH (09:00)
[2016-07-09] MEDS: LOSARTAN 50 MG TAB PO SCH (09:00)
[2016-07-09] MEDS: CELECOXIB 200 MG CAP PO SCH (10:11)
--- NOTE | 2016-07-09 11:18 | PN ---
Date/Time of Note Date/Time of Note DATE: 07/09/16 TIME: 11:15 Assessment/Plan Lines/Catheters IV Catheter Type (from Nrsg): Saline [place] in Place (from Nrsg): No Assessment/Plan Assessment/Plan Stable. -D/C to home -Pain meds -Home PT -E.C. ASA 325 mg po bid -F/u with Dr. Mckeon in 1 week Subjective 24 Hr Interval Summary Feels well. Eager to go home. Minimal pain. Cleared by Dr. Jung to go home. Exam/Review of Systems Vital Signs Vitals Vital Signs Date Time Temp Pulse Resp B/P Pulse Ox O2 Delivery O2 Flow Rate FiO2 07/09/16 08:00 98.0 66 20 140/71 99 07/08/16 21:05 Room Air 07/06/16 21:15 2.0 Intake and Output 07/08/16 07/08/16 07/09/16 15:00 23:00 07:00 Intake Total 540 ml 1050 ml Output Total 800 ml 1200 ml Balance -260 ml -150 ml Exam Free Text/Dictation Dressing dry Incision clean, dry, and intact without redness or drainage 5/5 Tibialis Anterior, EHL, Gastroc Soleus, Peroneals Normal sensation Palpable DP/PT, CR < 2 Sec No distal edema Results Result Diagram: 07/09/16 0435 ALEX STEPHENS MD Jul 09, 2016 11:17
== END 2016-07-09 11:50 | disposition home health service (06) | DRG 470 ==
LOC: REC 05:35 → MS1 13:00
PROC: 0SRC0J9 Replacement of Right Knee Joint with Synthetic Substitute, Cemented, Open Approach (ICD-10-PCS; principal; 2016-07-06 07:00)
DX: M17.11 Unilateral primary osteoarthritis, right knee (principal); I10 Essential (primary) hypertension; E03.9 Hypothyroidism, unspecified; M81.0 Age-related osteoporosis without current pathological fracture; E78.5 Hyperlipidemia, unspecified; Z96.652 Presence of left artificial knee joint
CPT/HCPCS: 73560; 73562; 81001; 81003; 85025; 86850; 86900; 86901; 86920; 87075; 87086; 88304; 88311; 97001; 97110; 97116; 97530; C1776; J0131; J0690; J0735; J1100; J1885; J2274; J2405; J2795; J3010; J3370; J7121

== ENCOUNTER → 2016-07-26 | Outpatient (CLI) | payer MEDICARE, OTHER ==
[~2016-07-26] MED LIST: ASPI325T32 PO; BENHCT2012 PO; CELE-54 PO; CLON1TAB3 PO; CRES10 PO; DEXL60CA2 PO; FERR1TAB14 PO; GABA100C14 PO; LEVO50TA83 PO; LINA290C PO; METO50TA16 PO; POTA10TA18 PO
--- NOTE | 2016-07-26 16:01 | RADRPT ---
PROCEDURE: Right knee radiographs. CLINICAL INDICATION: Right knee pain. Postop. TECHNIQUE: Three views. Weight bearing. Frontal, lateral, and patellar view. COMPARISON: 07/06/2016. FINDINGS: There is no fracture or dislocation. The soft tissues are normal. There is a total right knee constrained arthroplasty which appears satisfactory. There is no lytic or blastic lesion. There is no joint effusion. IMPRESSION: 1. Satisfactory postoperative appearance of the right knee. RPTAT: QQ .Guanakito Church MD, Date Time Electronically viewed and signed by .Guanakito Church MD, on 07/26/2016 16:00 .R/
--- NOTE | 2016-07-26 23:50 | HKNOTE ---
DATE OF SERVICE: Now 3 weeks following right total knee replacement. Visiting nurses have been coming to her house, but her madonna have not yet been removed from her wound. She complains of a great deal of pain in the knee. She is taking [place] for the pain, but she only takes 2 tablets a day. She is continuing to take her Celebrex. She has absolutely no rest pain. She walks without a walking aid, but she sanders s difficulty getting around, and so far, she is not very pleased with the result of her knee replace ment. PHYSICAL EXAMINATION: VITAL SIGNS: Blood pressure 110/55, temperature 97.8. KNEE: No external sign of infection or inflammation in the knee. Active and passive extension lack s 10 degrees. Flexion is to 105 degrees. MANAGEMENT: All madonna were removed. The patient is going to progress with her physical therapy parth boo. She will be back in a week to see me for re-evaluation. Dictated By: LUIS BEARDEN/HANH Conf#: [id number] DID#: [id number]
== END | disposition home or self-care (01) ==
LOC: HKI 14:49
DX: Z47.1 Aftercare following joint replacement surgery (principal); M25.561 Pain in right knee; Z96.651 Presence of right artificial knee joint

== ENCOUNTER → 2016-08-16 | Outpatient (CLI) | payer MEDICARE, OTHER ==
--- NOTE | 2016-08-16 18:26 | HKNOTE ---
DATE OF SERVICE: 08/16/2016 HISTORY OF PRESENT ILLNESS: A 75-year-old female presents today for 6-week postoperative visit status post right total knee replacement. The patient continues to be in moderate to severe pain, especially with weightbearing. The patient is able to weightbear with assistance using a walker. Denies any falls. The patient has been out of her [place] and states that is helping to control her pain. Pain is primarily to the medial side of the knee. No calf pain. No chest pain. OBJECTIVE: VITAL SIGNS: Blood pressure is 131/66, temperature is 97.5 degrees, pulse is 85 , respiratory rate is 12, height is 5 feet 5 inches, weight is 154 pounds. PHYSICAL EXAMINATION: Tenderness to palpation of the right knee, primarily to the medial compartment of the knee. Wound is clean, dry and intact and healing well. Gait is antalgic with limp. The patient uses an ambulatory device of a cart with wheels to help with her balance. Normal sensory examination to light touch. Limited range of motion as patient is able to flex up to 90 degrees with pain. IMAGING: X-ray on 08/16/2016 showing all components of prosthesis well aligned and appeared to be well attached and integrated to the bone. There does appear to be mild lucency along the medial distal femoral condyle, but cannot be sure on x-ray. ASSESSMENT AND PLAN: The patient was seen directly with Dr. Roberts today in which prescription for a CT scan with metal suppression ordered today for further evaluation until ongoing constant, moderate to severe pain complaints. 1. Prescription for diclofenac 35 mg 1 tab p.o. t.i.d. #90 as well as [place] 10/ 325 mg 1 tab p.o. t.i.d. p.r.n. severe pain only #90 tablets given today. 2. Antibiotic prophylaxis discussed today. 3. The patient was advised to follow up next week after CT scan. Dictated By: SARAI MCKEON for LUIS ROBERTS MD, KP/HANH Conf#: [id number] DID#: [id number] MTDD
== END | disposition home or self-care (01) ==
LOC: HKI 14:26
DX: Z47.1 Aftercare following joint replacement surgery (principal); Z96.698 Presence of other orthopedic joint implants; Z96.651 Presence of right artificial knee joint
CPT/HCPCS: G0463

== ENCOUNTER → 2016-08-23 | Outpatient (CLI) | payer MEDICARE, OTHER ==
--- NOTE | 2016-08-23 16:31 | RADRPT ---
PROCEDURE: Right knee radiographs. CLINICAL INDICATION: Right knee pain. Postop. TECHNIQUE: Two views. Frontal and lateral. COMPARISON: 08/16/2016 FINDINGS: There is no fracture or dislocation. The soft tissues are normal. There is a total right knee arthroplasty which appears satisfactory. There is no lytic or blastic lesion. There is no joint effusion. IMPRESSION: 1. Satisfactory postoperative appearance of the right knee. RPTAT: QQ .Guanakito Church MD, MD Date Time Electronically viewed and signed by .Guanakito Church MD, on 08/23/2016 16:31 .R/
--- NOTE | 2016-08-23 17:58 | HKNOTE ---
DATE OF SERVICE: The patient is now 6 weeks following right knee replacement. Her pain is markedly improved since el kohler last saw me. She comes in with a CAT scan of her knee for review. PHYSICAL EXAMINATION: She walks with a walker. She still has an antalgic gait and she is not putti ng all her weight on her leg. VITAL SIGNS: Blood pressure 140/80, temperature 98.1. EXAMINATION OF THE KNEE: Active extension is full. Active and passive flexion is to 120 degrees wi th minimal pain. IMAGING: A CAT scan of the knee obtained on 08/18/[address] Dave Rachel as show ing "nondisplaced fracture of the base of the lateral femoral condyle which appears incomplete, exte nding approximately [address] the base of the epicondyle." New x-rays were obtained of the knee today (3 views). These show no change since the initial postop erative x-rays in the operating room. MANAGEMENT: The patient is using a walker. She was instructed to put as little weight on the leg a s she can handle without losing her balance. She was shown the x-rays and told of the concern we sanders ve for the knee. She is planning to go to [place] in November. I believe that she will be healed enough by then to fly. The patient will be seen again in one week's time for reevaluation. She takes a half of [place] twice a day for pain and she thinks she was running out so I gave her a new prescription for [place], which she can fill within the next 2 weeks or so if she runs out. Dictated By: LUIS BEARDEN/HANH Conf#: [id number] DID#: [id number]
== END | disposition home or self-care (01) ==
LOC: HKI 13:43
DX: Z47.1 Aftercare following joint replacement surgery (principal); Z96.651 Presence of right artificial knee joint

== ENCOUNTER → 2016-10-10 | Outpatient (CLI) | payer MEDICARE, OTHER ==
--- NOTE | 2016-10-10 16:30 | PN ---
Date/Time of Note Date/Time of Note DATE: 10/10/16 TIME: 16:22 Outpatient Progress Note Chief Complaint Three-month postop visit status post right total knee arthroplasty. Monitoring of distal femoral fracture to the medial and lateral condyle. HPI 75-year-old female presents today for 3 month postop visit status post right total knee arthroplasty performed on 07/06/2016. Patient also suffered subsequent distal femoral fracture to the medial and lateral condyle. Since she was last seen, patient states that her pain is significantly improved. She denies any pain at night or sleeping. Throughout the day she states that she may experience mild pain complaints usually with activity. Patient is very pleased on exam today as she states that her functionality has improved. She continues using walker for assisted ambulation but feels that she is strong enough and may not need walker anymore she just fears that she may fall at times. She states that her limping gait has improved. When asked, patient states that she did have home health and physical therapy but feels that additional physical therapy is no longer needed as she has been regaining her strength and functionality to the knee. Denies any chest pain/tightness. Denies any calf pain. Denies any shortness of breath. Important to note, over the past week or so patient has been having body aches/ weakness and feels that she is coming on with upper respiratory complaints. Denies any cough or congestion. Review of Systems Const: No Fever, no chills, no Fatigue, normal appetite, no diaphoresis. Resp: No SOB, no wheezing, no chest pain. CV: No chest pain, no palpitaions, no SCHWARTZ. Physical Exam Blood pressure is 124/61, temperature is 99.8, pulse is 89, respiratory rate is 12, height is 5 foot 5 inches, weight is 164 pounds. General Appearance: well-developed, well-nourished, in no acute distress. Right knee: Gait is abnormal with slight limp on exam. Assisted ambulation using front wheeled walker. When asked, patient is able to walk independently with continued slight limp. While lying supine, patient is able to flex the knee up to 120. She has achieved full extension to the right knee. No tenderness to palpation. Surgical wound is well-healed. Normal sensory examination to light touch. Negative [place] sign/no calf pain. Imaging: X-ray of the right knee performed on 10/10/2016 showing all components appearing well aligned, attached and integrated to the bone. No signs of any lucency between metal and bone. Improved callus formation to the distal femoral medial and lateral condyle status post fracture when compared to previous x-rays performed in August 2016. Femur remains stable. We will continue to monitor. Allergies Coded Allergies: No Known Allergy (Unverified , 07/05/16) Assessment/Plan -Patient progressing well -Surgical wound continues to heal well. -No signs of infection or DVT on exam. -X-rays showing continued callus formation and healing status post fracture. Prosthesis remain well attached and integrated to the bone. -Range of motion is improved status post total knee replacement. -Antibiotic prophylaxis card provided to the patient on previous visit. -Follow-up 1 month for repeat evaluation as well as repeat x-rays for monitoring. May follow-up sooner should there be any complication. Dental prophylaxis discussed in detail today. Patient given prophylaxis card with antibiotic options. Should patient have allergy to specific medication ( eg penicillin) alternative options are also provided on the card. Patient is aware that antibiotics should be taken prior to any procedures to prevent increased risk of infection to the joint. Patient is aware that this will be for the rest of their life. Patient states understanding and compliance. Prescription for physical therapy to the right knee provided today. Patient states that she does "not need additional physical therapy" but prescription was given anyway in hopes that patient will continue conservative measure of treatment status post surgery especially with focus on gait training. Dr. Mckeon was present for exam today and agrees with plan. Medications Home Meds Active Scripts Ferrous Fumarate/Ascorbic Acid (Grace-Sequels 65-25 mg Caplet) 1 Each Tablet.er , 1 TAB PO BID for 30 Days, TAB Prov:CEDRIC CAGLE MD 07/09/16 Celecoxib (Celecoxib) 200 Mg Capsule, 200 MG PO BID for 14 Days, CAP Prov:CEDRIC CAGLE MD 07/09/16 Aspirin (Aspir-Melvina) 325 Mg Tablet., 325 MG PO BID for 14 Days Prov:CEDRIC CAGLE MD 07/09/16 Reported Medications Dexlansoprazole (Dexilant) 60 Mg Cap., 60 MG PO DAILY, #30 CAP 07/06/16 Olmesartan-Hydrochlorothiazide (Benicar HCT) 20-12.5 Mg Tablet, 1 TAB PO DAILY, #30 TAB 07/06/16 Linaclotide (LINZESS) 290 Mcg Capsule, 290 MCG PO DAILY, #30 CAP 07/06/16 Metoprolol Succinate* (Toprol XL*) 50 Mg Tab.er.24h, 50 MG PO DAILY, #30 TAB 07/06/16 Clonazepam* (Clonazepam*) 1 Mg Tablet, 1 MG PO BID, TAB 07/06/16 Potassium Citrate* (Potassium Citrate* ER) 10 Meq Tablet.sa, MEQ PO DAILY, TAB.SA 07/06/16 Rosuvastatin Calcium* (Crestor*) 10 Mg Tablet, 10 MG PO DAILY, #30 TAB 07/06/16 Gabapentin* (Gabapentin*) 100 Mg Capsule, 100 MG PO DAILY, #90 CAP 07/06/16 Levothyroxine Sodium* (Synthroid*) 50 Mcg Tablet, 50 MCG PO BEFORE BREAKFAST, # 30 TAB 07/06/16 SARAI WALTERS PA-C Oct 10, 2016 16:30
--- NOTE | 2016-10-10 17:17 | RADRPT ---
PROCEDURE: Right knee radiographs. CLINICAL INDICATION: Right knee pain. Postop. TECHNIQUE: Three views. Weight bearing. Frontal, lateral, and patellar view. COMPARISON: 08/23/2016. FINDINGS: There is a healing transverse fracture through the supracondylar region of the distal femur with sat isfactory alignment. There is no new fracture or dislocation. The soft tissues are normal. There is a total right knee constrained arthroplasty which appears satisfactory. There is no lytic or blastic lesion. There is no joint effusion. IMPRESSION: 1. Satisfactory postoperative appearance of the right knee. 2. Healing transverse fracture through the supracondylar region of the distal femur with satisfacto ry alignment. RPTAT: QQ .Guanakito Church MD, MD Date Time Electronically viewed and signed by .Guanakito Church MD, on 10/10/2016 17:17 .R/
== END | disposition home or self-care (01) ==
LOC: HKI 14:13
DX: Z47.1 Aftercare following joint replacement surgery (principal); Z96.651 Presence of right artificial knee joint
CPT/HCPCS: 73562; G0463

== ENCOUNTER → 2016-11-30 | Outpatient (CLI) | payer MEDICARE, OTHER ==
--- NOTE | 2016-11-30 15:31 | RADRPT ---
PROCEDURE: XR right knee. CLINICAL INDICATION: Knee pain. TECHNIQUE: AP weightbearing, lateral weightbearing and sunrise views are available for review. COMPARISON: 10/10/2016 and 08/16/2016 FINDINGS: There is a healed transverse supracondylar fracture. There is a constrained total knee replacement. There is no evidence of loosening of the prosthesis. There is no evidence of hardware failure. The osseous structures are normal in mineralization, archi tecture and alignment No acute fracture or dislocation is seen.No osseous lesions are identified. T he soft tissues are unremarkable . IMPRESSION: Unremarkable constrained total knee replacement. Healed transverse supracondylar fracture RPTAT: HGDB .Kyle Beauchamp MD, MD Date Time Electronically viewed and signed by .Kyle Beauchamp MD, on 11/30/2016 15:30 .B/
--- NOTE | 2016-12-06 07:10 | HKNOTE ---
DATE OF SERVICE: 11/30/2016 The patient had a right total knee replacement on 07/06/2016. She was seen 3 weeks postoperatively. The madonna had not been removed as of yet. She was walking without a walking aid. She had absol utely no rest pain, but she had some pain with walking, and she stated that she was so far not very pleased with the results of her knee replacement. She was subsequently seen on 08/16/2016 for the 6-week checkup. She continued to complain of pain w ith weightbearing. She was now using a walker. She denies that she had had any falls. The pain wa s mostly on the medial side of the knee. On physical examination, her gait was antalgic. IMAGING: X-rays of the knee showed all components well aligned, and the leg was well aligned. Ther e was a suspicious lucency around the medial distal femoral condyle. A CAT scan was ordered with me danny marcano for further evaluation. She is advised to return in 1 week's time. A CAT scan was obtained on 08/18/2016 and was reported as showing "a nondisplaced fracture at the base of the later al femoral condyle which appears incomplete." Medially, there was osteophytic ridging without well- defined fracture. No periprosthetic fracture or gross periprosthetic erosions changes. Tibial pros thetic component intact without prosthetic fracture. Patella intact. The patient was subsequently seen on 09/02/2016. New x-rays were obtained of the knee which showed no change since the initial postoperative x-rays. She was advised of our suspicion of a fracture wh ich was undisplaced. She was instructed to continue using her walker and put as little weight on th e leg as she could. The x-rays were shown to her. She needed minimal pain management, taking a "sanders lf a [place] twice a day." The patient failed to show for her next appointment on 07/06/2016. She was next seen on 10/10/2016. On 10/10/2016, she was seen for a 3-month postoperative visit. Amanda kohler stated that her pain was significantly improved. She had mild pain during the day associated with activity. She is very pleased with the result of her surgery. She continues to use a walker for a mbulation but felt strong enough to walk without it. She insists she "had fears that [she] may fall ." The limping gait had improved. She was having home health care and physical therapy and stated that she did not think additional physical therapy was needed. The patient is seen today. She walks without a walking aid, but, for the very first time since her surgery, she expresses great anger because she "was not given that machine that makes your leg move. " She had ordered one herself the previous week at the recommendation of a neighbor, and "after usi ng it for a few days, all my pain was gone." She seemed to be very much of the opinion that the CPM machine was vital to her recovery and that she would have been free of pain long ago if she had onl y been given the CPM machine. PHYSICAL EXAMINATION: Today, she walks without a walking aid. Her right knee range of motion, as f ar as extension lacks 5 degrees, flexion is to 100 degrees. The alignment has now changed slightly so that there is a valgus alignment of the knee. Her immediate postoperative x-rays were compared with the most recent x-rays, and these do indeed sh ow a change in alignment of the distal femur. My explanation to the patient was: 1. There had been a fracture of the distal femur which was probably more extensive than either I or the radiologist believed. Fortunately, the fracture did not go all the way through and there was n o disastrous consequence. 2. As a result of the technique of the vastus split that I have been using for about 4 years now, I stopped using the CPM machine because we are getting a full range of motion right from the time of surgery and patients do not seem to need it. Even at the end of an extremely long explanation and discussion, showing her the x-rays sequentially , she still was not very much mollified, and she was still of the opinion that the CPM machine would have hastened her recovery. Note that there is a very difficult language problem and this made every aspect of the explanation m ore difficult. The patient will be seen again in 6 weeks' time for reevaluation. Dictated By: LUIS BEARDEN/HANH Conf#: [id number] DID#: [id number]
== END | disposition home or self-care (01) ==
LOC: HKI 13:44
DX: Z47.89 Encounter for other orthopedic aftercare (principal); Z96.651 Presence of right artificial knee joint
CPT/HCPCS: 73562; G0463

== ENCOUNTER → 2017-01-02 | Outpatient (CLI) | payer MEDICARE, OTHER ==
--- NOTE | 2017-01-02 16:32 | RADRPT ---
PROCEDURE: Right knee radiographs. CLINICAL INDICATION: Right knee pain. Postop. TECHNIQUE: Three views. Weight bearing. Frontal, lateral, and patellar view. COMPARISON: 11/30/2016. FINDINGS: There is no acute fracture or dislocation. There is a healed supracondylar fracture of the distal f emur. The soft tissues are normal. There is a total right knee constrained arthroplasty which appears satisfactory. There is no lytic or blastic lesion. There is no joint effusion. IMPRESSION: 1. Satisfactory postoperative appearance of the right knee. 2. Healed supracondylar fracture of the distal femur. RPTAT: QQ .Guanakito Church MD, MD Date Time Electronically viewed and signed by .Guanakito Church MD, on 01/02/2017 16:32 .R/
--- NOTE | 2017-01-02 16:36 | RADRPT ---
PROCEDURE: XR Right Wrist. CLINICAL INDICATION: Right wrist pain. TECHNIQUE: Four views. Frontal, lateral, oblique, and scaphoid view. COMPARISON: No prior studies are available for comparison. FINDINGS: There is no fracture or dislocation. The soft tissues are normal. There are degenerative changes with joint space narrowing, osteophytes, subarticular sclerosis, and deformity involving the first carpal metacarpal joint and the radiocarpal joint. There is no lytic or blastic lesion. There is no radiopaque foreign body. IMPRESSION: 1. 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 2. Otherwise unremarkable images of the right wrist with no acute abnormality. RPTAT: QQ .Guanakito Church MD, MD Date Time Electronically viewed and signed by .Guanakito Church MD, on 01/02/2017 16:36 .R/
== END | disposition home or self-care (01) ==
LOC: HKI 14:28
DX: Z47.1 Aftercare following joint replacement surgery (principal); Z96.651 Presence of right artificial knee joint; M25.561 Pain in right knee
CPT/HCPCS: 73110; 73562; G0463

== ENCOUNTER → 2017-01-30 | Outpatient (CLI) | payer MEDICARE, OTHER ==
[~2017-01-30] MED LIST changes: +ATEN-51 PO
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
--- NOTE | 2017-02-12 15:21 | HKNOTE ---
DATE OF SERVICE: 01/30/2017 HISTORY OF PRESENT ILLNESS: The patient is going on a trip to [place] on 03/18/2017. She has no pain at all in her right knee, but she continues to limp. She is not able to walk more than a block, she has to stop because the leg feels weak, and also more importantly she becomes short of breath. PHYSICAL EXAMINATION: She still had a fairly marked limp. The quadriceps are weak and balance 4/5+. She is continued with her physical therapy. FOOT NOTE: The patient's convertible sofa bedspring tester, Mr. Jarquin, will contact me after she returns to get medical leave report on her. The patient sent me her convertible sofa bedspring tester number. I left him a message, but he did not call me back. Dictated By: Sidney Mckeon MD /ekaterina/gill /Document#: [id number]
== END | disposition home or self-care (01) ==
LOC: HKI 13:42
DX: R26.9 Unspecified abnormalities of gait and mobility (principal)
CPT/HCPCS: G0463

== ENCOUNTER → 2017-02-20 | Outpatient (CLI) | payer MEDICARE, OTHER ==
[~2017-02-20] MED LIST changes: -ATEN-51 PO
--- NOTE | 2017-02-22 22:56 | HKNOTE ---
DATE OF SERVICE: 02/20/2017 The patient comes in requesting that I give her a letter for her stone engraver saying that no further treatment is needed for her right knee. He is going to be going to [place] on March 10 and will return from [place] on April 03. She understands she is still limping, but she states she has absolutely no pain in the knee and she is expecting to lose the limp. The stone engraver that she that she wants the right letter to is Matilda Britton. Of note, there was great confusion because of the language problems and I did not understand whether she wanted to leave a report or not, but finally after very much discussion with a Ukrainian patient passing through, I understood that she needed a letter of release. On my prescription pad I scribbled a note which was photocopied and put into the chart. She will be seen again in 2 months' time for re-evaluation. Dictated By: Sidney Mckeon MD /ekaterina/valeriy /Document#: [id number]
== END | disposition home or self-care (01) ==
LOC: HKI 13:33
DX: Z47.89 Encounter for other orthopedic aftercare (principal); Z96.651 Presence of right artificial knee joint
CPT/HCPCS: G0463

== ENCOUNTER → 2017-06-05 | Outpatient (CLI) | payer MEDICARE, OTHER ==
[~2017-06-05] MED LIST changes: +METO-319 PO; -METO50TA16 PO
--- NOTE | 2017-06-06 07:00 | HKNOTE ---
DATE OF SERVICE: 06/05/2017 HISTORY OF MAIN COMPLAINT: The patient has returned from her [facility] [place] [facility]. Her knee pain has become even worse. Before she left for [place], the knee was causing her to limp and that caused her a great deal of stress, but she was not ____ i ncreasing pain in the knee. She saw her camp housekeeper, Dr. Lerma, who gave her a right shoe insert si nce the patient was complaining of shortness of the right leg. She had ____ but this has not given her much help. The patient states once again that she had "no pain before [place]." She is concerne d that there should still be so much pain in the knee. She now takes [place] twice a day for her pain . This is not helping at all. She states "Doctor, I want you to operate again on my knee as soon as possible. I don't want to be a cripple all my life." Plain x-rays of the right knee obtained today again suggest that there is a minimally displaced supr acondylar fracture. Imaging taken today of the right knee at [facility] [place] show that there has been more severe valgus angulation of the right knee at the level of the joint space. ____ walking. PHYSICAL EXAMINATION: VITAL SIGNS: 5 feet 5 inches, weight 164 pounds, blood pressure 125/65, temperature 98.1. GAIT: Patient walks without a walking aid. She has an antalgic gait. 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 The right knee looks excellent. Pain at the limits of motion. MANAGEMENT: The patient ____ Orthovisc into her knee. She has agreed to do that despite the fact t hat Dr. LAU already had it on his schedule. IMAGING: Plain x-rays of the right knee obtained today at the [facility] [place] were re viewed. They ____ Dr. Hill has long since had a role to play in this patient's well-being, but I suspect that she sanders s loose bodies or possibly even a Lange cyst the right knee ____. ____. Patient states that if she is going to need more surgery, she would like to have it as soon a s possible. The x-rays I obtained at the [facility] [place] today seem to indicate ubaldo t there may be a fracture of the bigger end, ____more mature members of the family. Patient will call ____ situation with her camp housekeeper and then if she needs to, he will schedule this other to be performed [place]AN[place]. Dictated By: LUIS BEARDEN/HANH Conf#: [id number] DID#: [id number]
--- NOTE | 2017-06-06 08:25 | RADRPT ---
PROCEDURE: RIGHT knee x-ray CLINICAL INDICATION: Knee pain TECHNIQUE: Weight bearing AP and lateral views of the knee were obtained. COMPARISON: [facility] 01/02/2017 FINDINGS: There is normal mineralization. No acute fracture or dislocation is seen. There is no joint effusion. The patient is status post right knee replacement with appropriate position of the prosthesis. There is no significant soft tissue swelling. RPTAT: AA IMPRESSION: Status post right knee replacement with appropriate position of the prosthesis. .Ajay Casey MD, Date Time Electronically viewed and signed by .Ajay Casey MD, on 06/06/2017 08:25 .S/
== END | disposition home or self-care (01) ==
LOC: HKI 10:43
DX: M25.561 Pain in right knee (principal)
CPT/HCPCS: 73562; G0463

== ENCOUNTER → 2017-06-15 | Outpatient (CLI) | payer MEDICARE, OTHER ==
--- NOTE | 2017-06-16 04:21 | HKNOTE ---
DATE OF SERVICE: 06/15/2017 CHIEF COMPLAINT: Right knee pain. HISTORY OF PRESENT ILLNESS: Josephine is a 76-year-old female who is here for followup and evaluation o f right knee pain. The patient had a right total knee replacement that was done about 1-1/2 years a go. Initially, the patient did quite well and over time, the patient has developed limp and deformi ty of her right lower extremity. The patient now complains of pain on the medial aspect of her righ t knee. This is associated with swelling. There is no history of giving out of the knee. There is no history of trauma, fever or chills. The patient has been followed by Dr. Roberts and is refe rred for further management. She also had a left knee replacement that was done several years ago a nd is doing quite well. PAST MEDICAL HISTORY: Significant for hypertension, hypothyroidism, bilateral knee replacements, an d increased cholesterol. MEDICATIONS: Include: 1. Metoprolol. 2. Atenolol. 3. Ibuprofen. 4. Amlodipine. 5. Synthroid. 6. Benicar. 7. Vitamins. 8. She also takes clonazepam for anxiety. ALLERGIES: NONE. REVIEW OF SYSTEMS: Negative for chest pain, shortness of breath, nausea, vomiting, diarrhea. Posit monster for limp and deformity of the right lower extremity. PHYSICAL EXAMINATION: GENERAL: Shows a pleasant female. She is awake, alert and oriented. VITAL SIGNS: She is 5 feet 5 inches, 168 pounds, temperature is 98 degrees, blood pressure 130/70. MUSCULOSKELETAL: The patient walks with a limp on her right side. There is a healed incision on th e right knee. The knee appears to have a varus deformity. There is medial joint line tenderness. Range of motion of the right knee is 10-125 degrees. There is no instability and no neurovascular d eficit. IMAGING: X-rays of the right knee were reviewed and show a right total knee replacement with no mica dence of loosening. However, review of serial x-rays shows a progressive deformity of the distal fe mur, possibly due to a femoral condyle fracture that is seen in several x-rays. ASSESSMENT AND PLAN: A 75-year-old female with deformity of her right knee replacement. This is a mechanical complication of the knee replacement, possibly from a supracondylar fracture that was jose tained sometime in the postoperative phase. At this time, the patient is bothered and limited by he r knee deformity and limp as well as pain. She would like to have further surgical treatment to fix this problem. She understands that treatment will involve revision of her right knee replacement t o correct the alignment of her right knee. Risks and benefits were discussed; implants and surgical technique were discussed and the patient would like to proceed with surgical treatment in the near future. Thank you, Dr. Roberts, for asking me to see this patient. Dictated By: AMELIE OSEGUERA MD UB/NTS Conf#: [id number] DID#: [id number] CC: LUIS ROBERTS MD;*End*
== END | disposition home or self-care (01) ==
LOC: HKI 13:42
PROVIDERS: ATTEND Orthopaedic Surgery
DX: M25.561 Pain in right knee (principal); I10 Essential (primary) hypertension; E78.00 Pure hypercholesterolemia, unspecified; E03.9 Hypothyroidism, unspecified; Z96.653 Presence of artificial knee joint, bilateral
CPT/HCPCS: G0463

== ENCOUNTER → 2017-07-20 | Outpatient (CLI) | END | disposition home or self-care (01) ==

== ENCOUNTER 2017-07-24 10:24 | Inpatient (IN) | END 2017-07-26 15:45 | disposition home health service (06) | DRG 468 ==

== ENCOUNTER → 2017-08-10 | Outpatient (CLI) | END | disposition home or self-care (01) ==

== ENCOUNTER → 2017-09-07 | Outpatient (CLI) | END | disposition home or self-care (01) ==

== ENCOUNTER → 2017-11-19 | Outpatient (CLI) | END | disposition home or self-care (01) ==